=== PATIENT | female | born 1940 | race Caucasian/White ===

== ENCOUNTER → 2017-06-14 07:15 | Outpatient (CLI) | payer MEDICARE, SELFPAY ==
--- NOTE | 2017-06-14 07:20 | CT_ITS ---
STUDY: CT BRAIN WITH AND WITHOUT CONTRAST REASON FOR EXAM: Female, 77 years old. Hearing loss of the left ear with tinnitus. RADIATION DOSAGE (If Supplied By Facility): CTDIvol = ( 44.99 ) mGy, DLP = ( 1513.48 ) mGycm TECHNIQUE: Transaxial CT imaging of the brain was performed pre and post contrast administration. The examination was performed with intravenous administration of 50 ml of Isovue 370 contrast material. Individualized dose optimization techniques were used for this CT. COMPARISON: None. FINDINGS: Normal soft tissue structures. Normal calvarium. There is mild cerebral atrophy with widening of the extra-axial spaces and ventricular dilatation. Normal white matter tracts of the cerebral hemispheres. There are small punctate calcifications of the basal ganglia which are seen in the aging brain as a normal variant. Normal brainstem. Normal cerebellum. There is no intracranial hemorrhage. There are no findings of an acute ischemic infarction. Mucosal thickening of the maxillary sinuses bilaterally. CT/Brain/Head W/WO Contrast IMPRESSION: Chronic involutional changes of the brain. Electronically Signed: Ricki Crespo MD at 8:49 EDT Tel [phone], Service support ,
[2017-06-14 07:45] LABS: CREATININE FINGERSTICK 0.8 mg/dL (0.55-1.02); EGFR FINGERSTICK > 60.0000 mL/min (>60)
== END ==
PROVIDERS: Family Provider Internal Medicine; PCP Internal Medicine; Visit Provider Otolaryngology Otolaryngology/Facial Plastic Surgery
DX: Z01.812 Encounter for preprocedural laboratory examination (principal); H93.12 Tinnitus, left ear; H90.42 Sensorineural hearing loss, unilateral, left ear, with unrestricted hearing on the contralateral side
CPT/HCPCS: 70470; Q9967

== ENCOUNTER 2018-08-03 11:05 | Observation (INO) | payer MEDICARE, SELFPAY ==
[2018-08-03] VITALS (11 sets, daily range): BP systolic 99–175; BP diastolic 45–82; PULSE 65–78; RESP 16–22; TEMP 36.4–36.6; O2SAT 92–100; BMI 29.7; BMI 30.2; BMI 30.3
--- NOTE | 2018-08-03 11:28 | RAD_ITS ---
STUDY: X-RAY CHEST REASON FOR EXAM: Female, 78 years old. Chest pain and cough TECHNIQUE: PA and lateral views of the chest. COMPARISON: None. FINDINGS: EKG leads overlie the chest. Stable appearance of a left subclavian pacemaker The lungs are clear and expanded. There is no demonstrated pleural abnormality. Normal size heart. Normal mediastinum and astrid. Normal visualized pulmonary arteries. Normal visualized aortic arch and descending thoracic aorta. There are diffuse degenerative changes of the visualized thoracic spine. Normal visualized ribs, clavicles, and shoulders. There is no demonstrated abnormality of the visualized soft tissue structures of the upper abdomen. RAD/Chest PA and Lateral IMPRESSION: No acute pulmonary process Electronically Signed: Branden Moreau MD at 12:45 EDT , Service support ,
--- NOTE | 2018-08-03 11:28 | EKG12_ITS ---
Test Reason : Blood Pressure : / mmHG Vent. Rate : 071 BPM Atrial Rate : 071 BPM P-R Int : 000 ms QRS Dur : 240 ms QT Int : 754 ms P-R-T Axes : 059 269 063 degrees QTc Int : 819 ms Ventricular-paced rhythm Abnormal ECG Confirmed by CAM MONTERO, TODD ([id number]), field map editor CHRISSY SAN ([id number]) on 08/08/2018 8:21:38 AM Referred By: MARIA LUISA Confirmed By:TODD LEVY MD
--- NOTE | 2018-08-03 11:28 | CT_ITS ---
STUDY: CT BRAIN WITHOUT CONTRAST REASON FOR EXAM: Female, 78 years old. Dizziness RADIATION DOSAGE (If Supplied By Facility): CTDIvol = ( 44.99 ) mGy, DLP = ( 796.11 ) mGycm TECHNIQUE: Transaxial CT imaging of the brain was performed without administration of intravenous contrast material. Individualized dose optimization techniques were used for this CT. COMPARISON: 06/14/2017 FINDINGS: Normal soft tissue structures. Normal calvarium. Normal size ventricles and extra-axial spaces for the patient's age. Normal white matter tracts of the cerebral hemispheres. Normal basal ganglia and thalami. Normal brainstem. Normal cerebellum. There is no intracranial hemorrhage. There are no findings of an acute ischemic infarction. Normal visualized paranasal sinuses. CT/Brain/Head without Contrast IMPRESSION: Chronic involutional changes of the brain. No acute hemorrhage Electronically Signed: Branden Moreau MD at 12:41 EDT , Service support ,
--- NOTE | 2018-08-03 11:32 | ED.VISSUMM ---
- ER Visit Summary Date of Service: 08/03/18 Chief Complaint: Dizziness History of Present Illness: The patient is a 78 F who presents with dizziness for the past 2 weeks. Patient states he was seen in the emergency department at [place] 2 weeks ago. Patient states she was discharged at that time after a normal work-up. Patient followed up with her primary care physician who increased her Lasix. Patient has had a 9 pound weight loss since increasing her Lasix. Patient states the dizziness became worse again last night. Patient states her dizziness is worse when she moves her head. Patient describes her dizziness as a lightheadedness. Patient denies any spinning sensation. Patient denies any visual or hearing changes. Patient does admit to some tingling that is intermittent in both legs. Patient denies any headaches. Patient denies any weakness. Patient denies any fevers or chills. Physical Examination: Vital signs are stable. Patient is afebrile. Patient is in no acute distress. Oral mucosa is pink and moist. Neck is supple. Trachea is midline. There is no JVD noted. Heart was regular rate and rhythm. Lungs are clear and equal bilaterally. Abdomen is soft. Bowel sounds are normal. There is no tenderness. Cranial nerves II through XII are intact. There are no focal motor or sensory deficits noted. Pupils are equal, round, and reactive to light. Extraocular muscles are intact. There is no nystagmus noted. Test Results: EKG showed a paced rhythm with a rate of 71. There is a left bundle branch block pattern noted. The pacemaker and left bundle branch block are new compared to previous EKG dated 01/31/2014. CBC was normal. Basic metabolic profile showed a sodium of 124, potassium 1.8, chloride of 73, and slightly elevated BUN of 24. Troponin was 0.200. PA and lateral chest x-ray was obtained. There is no acute cardiopulmonary process. CT scan of the brain was obtained. There are chronic changes. There is no acute intracranial abnormality. Urinalysis was obtained and does not show any evidence of urinary tract infection. Emergency Department Course and Treatment: Patient was given oral potassium as well as IV potassium here in the emergency department. Patient was given aspirin. Case was discussed with the hospitalist. He will admit the patient for observation. Disposition: Admit to hospital Impression: 1. Hypokalemia 2. General weakness 3. Elevated troponin This note was generated with Bereket dictation software. It may contain incorrect words, spelling, and punctuation that were not noted in review of the chart prior to signing ED Disposition - Plan for ED Patient: Disposition: Acute Care Hospital [facility] Diagnosis: Hypokalemia, Elevated troponin, General weakness Referrals: Gretta Davila MD [Primary Care Provider] -
[2018-08-03 12:20] LABS: Absolute Lymphocyte Count 1.26 X10^3/ul (0.83-4.51); Absolute Neutrophil Count 5.2 X10^3/uL (2.0-7.7); Basophil# 0.03 X10^3/uL; Basophil% 0.4 % (0-1); Eosinophil# 0.12 X10^3/uL; Eosinophils% 1.6 % (0-5); Hematocrit 37.5 % (37-47); Lymphocyte # 1.26 X10^3/ul (4.0); Lymphocyte % 16.5 % (19-41); Mean Corp Hgb Conc 34.7 g/gl (32-36); Mean Corpuscular Hgb 30.2 pg (27.0-32.0); Mean Corpuscular Volume 87.2 fL (81-99); Mean Platelet Vol. 9.6 fl (6.2-12.0); Monocyte# 1.02 X10^3/uL; Monocyte% 13.4 % (0-10); Neutrophil # 5.18 X10^3/uL (2.7-7.7); Platelet Count 188 K/mm3 (150-450); RBC Distribution Width CV 13.3 % (11.6-14.6); RBC Distribution Width SD 41.5 fl (35.1-43.9); White Blood Count 7.6 K/mm3 (4.4-11.0)
[2018-08-03 12:27] LABS: POSITIVE COUNT NO; POSITIVE DIFFERENTIAL NO; POSITIVE MORPHOLOGY NO
[2018-08-03 13:07] LABS: Bacteria 0 SEEN /hpf (None Seen); Mucous, Urine 0 SEEN /hpf (<or=2+); Squamous Epithelial Cells - UA 0 SEEN /hpf (5-10); White Blood Cells 0 SEEN /hpf (0-5)
[2018-08-03 13:11] LABS: Color, Urine Yellow (Yellow); Glucose, Dipstick Normal (Normal); Ketone-Dipstick 15 mg/dl (Negative); Leukocyte Esterase-Dipstick Negative /ul (Negative); Nitrite-Dipstick Negative (Negative); Occult Blood-Urine 50 /ul (Negative); Protein-Dipstick Negative (Negative); Urine Bilirubin Dipstick Negative (Negative); Urine Clarity Clear (Clear); Urine Urobilinogen Normal (Normal); Urine pH 6.5 (5.0 - 8.0)
[2018-08-03 13:23] LABS: Red Blood Cells-Urine 0-5 SEEN /hpf (0-5)
[2018-08-03 14:15] LABS: Anion Gap 12 (5-15); BUN 24 mg/dL (7-18); BUN/Creat Ratio 29.4 RATIO (10-20); Calcium,Total 9.2 mg/dL (8.5-10.1); Chloride 73 mmol/L (98-107); Creatinine, Serum 0.82 mg/dL (0.55-1.02); EST Glomerular Filtration Rate 72 mL/min (>60); Est Glom Filt Rate - Afr Amer 87 mL/min (>60); Estimated Creatinine Clearance 50.88 ml/min; Glucose 126 mg/dL (74-106); Potassium 1.8 mmol/L (3.5-5.1); Sodium Level 124 mmol/L (136-145)
--- NOTE | 2018-08-03 14:30 | NURSING ---
DR COX FOR DR SMITH
--- NOTE | 2018-08-03 14:36 | NURSING ---
PCU [place] HYPOKALEMIA, ELEVATED TROP, GEN WEAKNESS
--- NOTE | 2018-08-03 14:52 | HP.PCM_ITS ---
Problem List (1) Aortic stenosis Status: Chronic (2) Mitral valve prolapse Status: Chronic (3) Cerebrovascular disease Status: Chronic (4) Hypertension Status: Chronic (5) Hyperlipidemia Status: Chronic (6) Dyslipidemia Status: Chronic (7) Type 2 diabetes mellitus Status: Chronic (8) Elevated troponin Status: Acute (9) General weakness Status: Acute History of Present Illness Date of Admission: 08/03/18 Chief Complaint: dizziness The patient is a 78 year old F with a PMH as below who presents with 2 weeks of dizziness. She states that she initially went to [facility] and her work- up there was normal. She followed up with her PCP who increased her Lasix but otherwise could not find anything else for her dizziness. She presents today because her PCP told her to come into the hospital because of her continued dizziness. In the ER she had a paced rhythm on EKG but she was positive for her orthostatics and her potassium was found to be 1.8. She did have a normal creatinine. Her troponin was also elevated to 0.2 however she has no corresponding chest pain. History is limited because she is a little bit slow in her responses likely secondary to her hypokalemia and there is no family in the room at the time of examination. Past Medical History Past Medical History (Chronic Problems): Chronic Problems Aortic stenosis (Chronic) Mitral valve prolapse (Chronic) Cerebrovascular disease (Chronic) Hypertension (Chronic) Hyperlipidemia (Chronic) Dyslipidemia (Chronic) Type 2 diabetes mellitus (Chronic) Allergies glyburide Allergy (Verified 08/03/18 11:09) Itching Sulfa (Sulfonamide Antibiotics) Allergy (Verified 08/03/18 11:09) Hives Home Medications: Ambulatory Orders Medication Instructions Recorded Aspirin [Aspirin, Baby] 81 mg PO DAILY@0800 01/31/14 Clopidogrel Bisulfate [Plavix] 75 mg PO DAILY 01/31/14 Flaxseed Oil/[place] 3,6,9 [Sv 1,000 mg PO DAILY 01/31/14 Flaxseed Oil 1,300 mg Sftgl] Furosemide [Lasix] 20 mg PO DAILY 01/31/14 Metoprolol Tartrate [Lopressor 12.5 mg PO DAILY 01/31/14 (beta santa)] Nitroglycerin (INPATIENT USE) 0.4 mg SUBLINGUAL Q5M PRN 04/28/15 [Nitrostat] Potassium Chloride [K-Dur] 10 meq PO DAILY 04/28/15 Ezetimibe 10 mg PO DAILY 08/03/18 Surgical History: pacemaker implantation, tonsillectomy, - - Carotid endarterectomy, valve replacement Smoking Status: Never smoker Alcohol: None Drugs: None - *Family History Maternal History Items: No pertinent history Paternal History Items: No pertinent history Review of Systems Constitutional: Denies: Chills, Fever, Weight Change HEENT: Denies: Head Aches, Sinus Congestion, Sinus Drainage Cardiovascular: Reports: Light Headedness. Denies: Chest Pain, Palpitations Respiratory: Denies: Cough, Shortness of breath at rest, Sputum production Gastrointestinal: Denies: Abdominal Pain, Nausea, Vomiting Genitourinary: Denies: Dysuria Musculoskeletal: Denies: Joint Pain, Joint Tenderness Skin: Denies: Rash, Wounds Neurological: Denies: Numbness, Tingling, Focal weakness Psychiatric: Denies: Anxiety, Depression Hematologic/ Lymphatic: Denies: Easy Bruising, Easy Bleeding VTE Information - Inpt Only VTE Present on Admission: No Patient Problems: Active and Suspected Problems Hypokalemia (Acute) Elevated troponin (Acute) General weakness (Acute) - Physical Exam General: Alert, Oriented x3, Cooperative, No apparent distress, - - Slow in speech and thought process HEENT: Atraumatic, PERRLA, EOMI, Normocephalic Oral: Dry Mucosa Neck: Supple, No JVD Lungs: Clear to auscultation, Normal air movement, No rhonchi, No wheeze, No rales Cardiovascular: Regular rate, Regular Rhythm, Normal S1, Normal S2, No murmurs Abdomen: Soft, Non Tender, Non-Distended, No Hepato-splenomegaly Extremities: No edema, Capillary Refill Less than 3 Seconds Skin: No rashes, No breakdown Neurological: Neuro grossly intact, Sensory exam intact to light touch and pain Psych/Mental Status: Normal Affect, Appropriate Vital Signs Temp Pulse Resp BP Pulse Ox 98 F 75 22 H 116/70 92 08/03/18 11:06 08/03/18 13:31 08/03/18 13:31 08/03/18 13:31 08/03/18 13:31 Oxygen Delivery Method Room Air Weight: 179 lb Body Mass Index (BMI) 29.7 Laboratory Tests Past 24 Hrs 08/03/18 08/03/18 08/03/18 12:05 12:05 13:00 WBC 7.6 RBC 4.30 Hgb 13.0 Hct 37.5 MCV 87.2 MCH 30.2 MCHC 34.7 RDW 13.3 RDW Differential 41.5 Plt Count 188 MPV 9.6 Immature Gran % (Auto) 0.100 Neut % (Auto) 68.0 Lymph % (Auto) 16.5 L [place] % (Auto) 13.4 H Eos % (Auto) 1.6 Baso % (Auto) 0.4 Absolute Neuts (auto) 5.2 Absolute Lymphs (auto) 1.26 Total Counted Not Reportable Sodium 124 L Potassium 1.8 L* Chloride 73 L* Carbon Dioxide 39.0 H Anion Gap 12 BUN 24 H Creatinine 0.82 Estim Creat Clear Calc 50.88 Est GFR (MDRD) Af Amer 87 Est GFR (MDRD) Non-Af 72 BUN/Creatinine Ratio 29.4 H Glucose 126 H Calcium 9.2 Troponin I 0.200 H Urine Color Yellow Urine Clarity Clear Urine pH 6.5 Ur Specific Reading 1.010 Urine Protein Negative Urine Glucose (UA) Normal Urine Ketones 15 H Urine Occult Blood 50 H Urine Nitrite Negative Urine Bilirubin Negative Urine Urobilinogen Normal Ur Leukocyte Esterase Negative Urine RBC 0-5 SEEN Urine WBC 0 SEEN Ur Squamous Epith Cells 0 SEEN Urine Bacteria 0 SEEN Urine Mucus 0 SEEN Assessment/Plan All Active Problems Hypokalemia (Acute) Elevated troponin (Acute) General weakness (Acute) 1. Dizziness/elevated troponin/severe hypokalemia -Potassium was replaced with 60 mEq in the ER -BMP in the morning with mag and a false level -Serial troponins for further evaluation -She was orthostatic in the ER, vital signs went from 175 systolic down to 141 2. History of an aortic valve replacement/history of carotid endarter ectomy/possible heart failure/HTN/HLD -We will continue with her aspirin and Plavix -We will obtain an echo in the morning for evaluation of her elevated troponin -She is not sure that she even has heart failure and if she does she is not sure what kind it is -Hold her metoprolol and her Lasix for now -Continue with Zetia DVT: Lovenox Code Visit OBSV E&M: [id number] Initial observation care L3
--- NOTE | 2018-08-03 15:04 | CASEMGMT ---
RN CM Assessment Introduced role of RN CM to patient.? Patient is alert, oriented and able?to participate in RN CM Assessment. ?Care providers, pharmacy, and demographics verified. Presentation: Dizziness x2 weeks. Seen at ER in [place] [id number] ago, F/u with PCP-increased Lasix and has had a 9lb weigh loss since. Admit Dx: Hypokalemia, Increased Troponin Re-Admit: No Barriers/Issues: None. Patient states was only directed to take Potassium sometimes, states the last time her potassium was check she was told that it was getting a little low. This CM advised her s/w the physician regarding if there is a need for Daily Potassium and this typewriter mechanic educated/discussed on eating foods high in Potassium-and what some foods that are high in Potassium. PCP: Gretta Davila Specialists: Cardio- [facility] in [place]. Preferred Pharmacy: [facility] Insurance: [facility] Rx Benefit:?Yes, [employer] LNOK: Dtr Joleen Shen, Dtr Gia Caal, Dtr Dior Toth LW/HPOA: Yes both, States completed a long time ago and thinks HPOA- Dtr Gia Caal. Aware not on file at [facility]. Living Arrangements:?Lives Alone in a 3rd Fl apartment with Elevator Access. No steps to enter her Apartment. ADL?s: Independent with ambulation and ADL's Transportation: Patient drives, Dtr Dior Toth upon DC DME: [employer] HHC: None SNF: None Goal: Home, does not think will have any needs. Denies questions or concerns at this time. Aware CM remains available for any emerging needs that may arise. DC PLAN: Home with no anticipated needs identified at this time. ELENI Santiago
[2018-08-03] MEDS: Potassium Chloride 10mEq/100mL 10 MEQ/100 ML IV.SOLN. 100 MEQ IV BOLUS ×2 (15:14→16:12)
[2018-08-03] MEDS: Aspirin 81 MG TAB.CHEW 324 MG PO (15:14)
--- NOTE | 2018-08-03 15:14 | NURSING ---
117 HYPOKALEMIA AND ELEVATED TROP [place]
--- NOTE | 2018-08-03 15:15 | ED.RN ---
pt unable to swallow potassium. dr aware. pt attempted with water, yogurt and unsuccessful. pt requesting banana that is how she takes bigger pills at home. ordered from dietary
--- NOTE | 2018-08-03 15:50 | ED.RN ---
pt banana did not come up from dietary at this time. she is ready for transfer to unit. called [facility] aware pt has not had and they will give on unit.
--- NOTE | 2018-08-03 16:29 | EKG12_ITS ---
Test Reason : CP ADMISSION Blood Pressure : / mmHG Vent. Rate : 067 BPM Atrial Rate : 067 BPM P-R Int : 344 ms QRS Dur : 226 ms QT Int : 734 ms P-R-T Axes : 078 270 067 degrees QTc Int : 775 ms Atrial-sensed ventricular-paced rhythm with prolonged AV conduction Abnormal ECG When compared with ECG of 03-AUG-2018 11:41, MANUAL COMPARISON REQUIRED, DATA IS UNCONFIRMED Confirmed by CAM MONTERO, TODD ([id number]), supervising editor trailer ADOLFO OLVERA ([id number]) on 08/04/2018 8:10:18 AM Referred By: TRES Confirmed By:TODD LEVY MD
[2018-08-03] MEDS: 0.9% Normal Saline 1,000 ML 100 ML IV (17:58)
[2018-08-03 19:47] LABS: Magnesium 1.9 mg/dL (1.6-2.6)
[2018-08-03 23:04] LABS: Anion Gap 8 (5-15); BUN 20 mg/dL (7-18); BUN/Creat Ratio 21.6 RATIO (10-20); Calcium,Total 8.6 mg/dL (8.5-10.1); Chloride 82 mmol/L (98-107); Creatinine, Serum 0.92 mg/dL (0.55-1.02); EST Glomerular Filtration Rate 62 mL/min (>60); Est Glom Filt Rate - Afr Amer 75 mL/min (>60); Estimated Creatinine Clearance 45.35 ml/min; Glucose 136 mg/dL (74-106); Potassium 2.3 mmol/L (3.5-5.1); Sodium Level 130 mmol/L (136-145)
[2018-08-04] VITALS (11 sets, daily range): BP systolic 113–147; BP diastolic 51–70; PULSE 63–84; RESP 12–16; TEMP 36.5–36.7; O2SAT 94–98
--- NOTE | 2018-08-04 05:55 | ECHOD_ITS ---
Reason For Study: SYNCOPE/NEAR SYNCOPE Procedure This was a 2D Doppler, Color Flow transthoracic echocardiogram. The study was technically difficult. Definity deferred due to increased PAP. Exam performed portable in patient room. Left Ventricle Normal LV size. Moderate concentric left ventricular hypertrophy. Left ventricular systolic function is normal. The estimated ejection fraction is 65 %. Stage 2 diastolic dysfunction. No regional wall motion abnormalities noted. Right Ventricle Normal RV size. ICD or pacer leads identified within the right ventricle. Normal systolic function. Atria Normal left atrium. Normal right atrium. Mitral Valve There is moderate mitral annular calcification. Moderate (2+) eccentric mitral valve insufficiency. Tricuspid Valve Normal tricuspid valve. Moderate (2+) tricuspid valve insufficiency. Pulmonary artery systolic pressure is 56 mmHg. Aortic Valve Mild aortic stenosis. Mean aortic valve gradient 11 mmHg. Mild (1+) aortic valve insufficiency. Bioprosthetic aortic valve. Great Vessels Normal aortic root. The pulmonary artery is normal size. Normal inferior vena cava. Pericardium/Pleural No pericardial effusion. MMode/2D Measurements & Calculations LVIDd: 3.7 cm IVSd: 1.3 cm LVOT diam: 1.9 cm LVIDs: 1.8 cm LVPWd: 1.2 cm LVOT area: 2.9 cm2 RVDd: 3.2 cm FS: 51.1 % Ao root diam: 2.9 cm LAV(MOD-bp): 53.2 ml LVAd ap4: 21.2 cm2 LAV(MOD-bp) Indexed: 28.0 ml/m2 EDV(MOD-sp4): 59.1 ml LAV(MOD-sp2): 55.2 ml EDV(sp4-el): 61.4 ml LAV(MOD-sp4): 51.7 ml LVAs ap4: 8.7 cm2 ESV(MOD-sp4): 14.2 ml ESV(sp4-el): 13.1 ml EF(MOD-sp4): 76.0 % EF(sp4-el): 78.7 % SV(MOD-sp4): 44.9 ml SV(sp4-el): 48.3 ml LA A4 area: 18.8 cm2 LA dimension(2D): 4.8 cm RA A4 area: 18.6 cm2 Time Measurements MV dec time: 0.35 sec Doppler Measurements & Calculations MV E max chris: 150.0 cm/sec Lat Peak E' Chris: 8.4 cm/sec Med Peak E' Chris: 4.5 cm/sec MV A max chris: 125.2 cm/sec E/E' lat: 17.8 E/E' med: 33.5 MV E/A: 1.2 MV V2 max: 215.6 cm/sec MV P1/2t max chris: 211.9 cm/sec Ao V2 max: 215.7 cm/sec MV max P.6 mmHg MV P1/2t: 104.7 msec Ao max P.7 mmHg MV V2 mean: 136.1 cm/sec Ao V2 mean: 158.8 cm/sec MV mean P.3 mmHg MV dec slope: 592.8 cm/sec2 Ao mean P.2 mmHg MV V2 VTI: 69.3 cm MVA(P1/2t): 2.1 cm2 Ao V2 VTI: 45.0 cm MVA(VTI): 1.1 cm2 NIK(I,D): 1.7 cm2 NIK(V,D): 1.6 cm2 AI max chris: 326.4 cm/sec LV V1 max: 119.2 cm/sec SV(LVOT): 75.5 ml AI max P.7 mmHg LV V1 max P.7 mmHg AI dec slope: 218.0 cm/sec2 LV V1 mean P.2 mmHg AI P1/2t: 438.5 msec LV V1 mean: 83.0 cm/sec LV V1 VTI: 26.1 cm PA V2 max: 98.6 cm/sec TR max chris: 360.4 cm/sec MV P1/2t-pr_phl: 105.0 msec TR max P.0 mmHg Interpretation Summary Normal LV size. Moderate concentric left ventricular hypertrophy. Left ventricular systolic function is normal. The estimated ejection fraction is 65 %. Stage 2 diastolic dysfunction. Moderate (2+) eccentric mitral valve insufficiency. Bioprosthetic aortic valve. Mean aortic valve gradient 11 mmHg. Ordering Physician: Ernst Maza Referring Physician: MULU STOKES Performed By: Laura Roy RDCS
[2018-08-04 06:00] LABS: Anion Gap 10 (5-15); BUN 16 mg/dL (7-18); BUN/Creat Ratio 20.4 RATIO (10-20); Calcium,Total 8.3 mg/dL (8.5-10.1); Chloride 89 mmol/L (98-107); Creatinine, Serum 0.78 mg/dL (0.55-1.02); EST Glomerular Filtration Rate 76 mL/min (>60); Est Glom Filt Rate - Afr Amer 91 mL/min (>60); Estimated Creatinine Clearance 41.72 ml/min; Glucose 122 mg/dL (74-106); Magnesium 2.2 mg/dL (1.6-2.6); Phosphorus 1.7 mg/dL (2.5-4.9); Potassium 2.7 mmol/L (3.5-5.1); Sodium Level 136 mmol/L (136-145)
[2018-08-04] MEDS: Aspirin 81 MG TAB.CHEW PO (07:30)
[2018-08-04] MEDS: Ezetimibe 10 MG Tablet PO (09:53)
[2018-08-04] MEDS: Clopidogrel Bisulfate 75 MG Tablet PO (09:53)
[2018-08-04] MEDS: Enoxaparin 40 MG/0.4 ML Syringe SC (09:54)
--- NOTE | 2018-08-04 13:00 | PN_ITS ---
<Anne Rm - Last Filed: 08/04/18 12:55> Patient Problems: Active and Suspected Problems Hypokalemia (Acute) Elevated troponin (Acute) General weakness (Acute) Subjective: Patient seen and examined. Reports improvement in dizziness. Denies chest pain, shortness of breath. - Physical Exam General: Alert, Oriented x3, Cooperative HEENT: Atraumatic, PERRLA, EOMI, Normocephalic Neck: Supple, No JVD, Negative Carotid Bruits Lungs: Clear to auscultation, Normal air movement Cardiovascular: Regular rate, Regular Rhythm, Normal S1, Normal S2 Abdomen: Bowel Sounds Present, Soft, Non Tender, Non-Distended Extremities: No clubbing, No cyanosis, No edema, Capillary Refill Less than 3 Seconds Skin: No rashes, No breakdown Musculoskeletal: No Tenderness to Palpation of Joints or Extremities Neurological: Cranial nerves II-XII grossly intact, Neuro grossly intact Psych/Mental Status: Normal Affect, Appropriate Vital Signs Temp Pulse Resp BP Pulse Ox 97.8 F 65 14 119/62 94 08/04/18 07:37 08/04/18 07:37 08/04/18 07:37 08/04/18 07:37 08/04/18 07:37 Oxygen Delivery Method Room Air Weight: 181 lb 14.102 oz Body Mass Index (BMI) 30.2 Orthostatic Vital Signs Start: 08/04/18 03:11 Freq: q24h Status: Active Protocol: Activity Type Activity Date Activity User E-Sign Co-Sign Detail Recorded Client Recorded Date Recorded By Document 08/04/18 03:11 [facility] [id number] 08/04/18 03:12 [facility] 08/04/18 03:11 Orthostatic Vitals Standing -Blood Pressure (90/60-120/80) 114/51 L -Extremity Use Left Arm -Pulse Rate (60-100) 72 Sitting -Blood Pressure (90/60-120/80) 130/57 H -Extremity Use Left Arm -Pulse Rate (60-100) 74 Lying -Blood Pressure (90/60-120/80) 134/55 H -Extremity Use Left Arm -Pulse Rate (60-100) 73 Intake and Output for Last 24 Hours 08/02/18 08/03/18 08/04/18 23:59 23:59 23:59 Intake Total 735 / 735 2609 / 2609 Balance 735 / 735 2609 / 2609 Laboratory Tests Past 24 Hrs 08/03/18 08/03/18 08/03/18 12:05 13:00 16:22 Sodium 124 L Potassium 1.8 L* Chloride 73 L* Carbon Dioxide 39.0 H Anion Gap 12 BUN 24 H Creatinine 0.82 Estim Creat Clear Calc 50.88 Est GFR (MDRD) Af Amer 87 Est GFR (MDRD) Non-Af 72 BUN/Creatinine Ratio 29.4 H Glucose 126 H Calcium 9.2 Phosphorus Magnesium Troponin I 0.200 H 0.213 H Urine Color Yellow Urine Clarity Clear Urine pH 6.5 Ur Specific [place] 1.010 Urine Protein Negative Urine Glucose (UA) Normal Urine Ketones 15 H Urine Occult Blood 50 H Urine Nitrite Negative Urine Bilirubin Negative Urine Urobilinogen Normal Ur Leukocyte Esterase Negative Urine RBC 0-5 SEEN Urine WBC 0 SEEN Ur Squamous Epith Cells 0 SEEN Urine Bacteria 0 SEEN Urine Mucus 0 SEEN 08/03/18 08/03/18 08/03/18 16:22 19:06 22:10 Sodium 130 L Potassium 2.3 L* Chloride 82 L Carbon Dioxide 40.0 H Anion Gap 8 BUN 20 H Creatinine 0.92 Estim Creat Clear Calc 45.35 Est GFR (MDRD) Af Amer 75 Est GFR (MDRD) Non-Af 62 BUN/Creatinine Ratio 21.6 H Glucose 136 H Calcium 8.6 Phosphorus Magnesium 1.9 Troponin I 0.209 H Urine Color Urine Clarity Urine pH Ur Specific [place] Urine Protein Urine Glucose (UA) Urine Ketones Urine Occult Blood Urine Nitrite Urine Bilirubin Urine Urobilinogen Ur Leukocyte Esterase Urine RBC Urine WBC Ur Squamous Epith Cells Urine Bacteria Urine Mucus 08/04/18 05:05 Sodium 136 Potassium 2.7 L* Chloride 89 L Carbon Dioxide 37.0 H Anion Gap 10 BUN 16 Creatinine 0.78 Estim Creat Clear Calc 41.72 Est GFR (MDRD) Af Amer 91 Est GFR (MDRD) Non-Af 76 BUN/Creatinine Ratio 20.4 H Glucose 122 H Calcium 8.3 L Phosphorus 1.7 L Magnesium 2.2 Troponin I Urine Color Urine Clarity Urine pH Ur Specific [place] Urine Protein Urine Glucose (UA) Urine Ketones Urine Occult Blood Urine Nitrite Urine Bilirubin Urine Urobilinogen Ur Leukocyte Esterase Urine RBC Urine WBC Ur Squamous Epith Cells Urine Bacteria Urine Mucus Medical Necessity - Tobacco Use Smoking Status: Never smoker Assessment/Plan All Active Problems Hypokalemia (Acute) Elevated troponin (Acute) General weakness (Acute) 1. Severe hypokalemia-suspect secondary to recent increase in diuretic regimen. She reports Bumex was added to Lasix. Replace potassium per protocol. Repeat BMP in a.m. 2. Elevated troponin-troponin did not trend. EKG without ST-T changes. Patient denies chest pain, chest pressure or shortness of breath. Echocardiogram ordered and pending. Obtain records from patient's primary demand generation manager. 3. Dizziness, suspected secondary to orthostatic hypotension as a result of diuretic regimen-diuretic regimen on hold. Gentle IV fluids. Repeat orthostatic vitals in a.m. 4. Hypertension-stable, continue home metoprolol regimen. 5. Hyperlipidemia-continue Zetia regimen. 6. History of aortic valve replacement 7. History of carotid endarterectomy-continue aspirin, Plavix, Zetia regimen. DVT prophylaxis- Lovenox sc This patient was seen by TESSA Wilson under the supervision of Dr. Sheridan. <Sandy Sheridan - Last Filed: 08/04/18 14:03> - Physical Exam Vital Signs Temp Pulse Resp BP Pulse Ox 97.8 F 68 12 132/51 H 98 08/04/18 13:44 08/04/18 13:44 08/04/18 13:44 08/04/18 13:44 08/04/18 13:44 Oxygen Delivery Method Room Air Weight: 181 lb 14.102 oz Body Mass Index (BMI) 30.2 Orthostatic Vital Signs Start: 08/04/18 03:11 Freq: q24h Status: Active Protocol: Activity Type Activity Date Activity User E-Sign Co-Sign Detail Recorded Client Recorded Date Recorded By Document 08/04/18 03:11 [facility] [id number] 08/04/18 03:12 [facility] 08/04/18 03:11 Orthostatic Vitals Standing -Blood Pressure (90/60-120/80) 114/51 L -Extremity Use Left Arm -Pulse Rate (60-100) 72 Sitting -Blood Pressure (90/60-120/80) 130/57 H -Extremity Use Left Arm -Pulse Rate (60-100) 74 Lying -Blood Pressure (90/60-120/80) 134/55 H -Extremity Use Left Arm -Pulse Rate (60-100) 73 Intake and Output for Last 24 Hours 08/02/18 08/03/18 08/04/18 23:59 23:59 23:59 Intake Total 735 / 735 2609 / 2609 Balance 735 / 735 2609 / 2609 Laboratory Tests Past 24 Hrs 08/03/18 08/03/18 08/03/18 12:05 16:22 16:22 Sodium 124 L Potassium 1.8 L* Chloride 73 L* Carbon Dioxide 39.0 H Anion Gap 12 BUN 24 H Creatinine 0.82 Estim Creat Clear Calc 50.88 Est GFR (MDRD) Af Amer 87 Est GFR (MDRD) Non-Af 72 BUN/Creatinine Ratio 29.4 H Glucose 126 H Calcium 9.2 Phosphorus Magnesium 1.9 Troponin I 0.200 H 0.213 H 08/03/18 08/03/18 08/04/18 19:06 22:10 05:05 Sodium 130 L 136 Potassium 2.3 L* 2.7 L* Chloride 82 L 89 L Carbon Dioxide 40.0 H 37.0 H Anion Gap 8 10 BUN 20 H 16 Creatinine 0.92 0.78 Estim Creat Clear Calc 45.35 41.72 Est GFR (MDRD) Af Amer 75 91 Est GFR (MDRD) Non-Af 62 76 BUN/Creatinine Ratio 21.6 H 20.4 H Glucose 136 H 122 H Calcium 8.6 8.3 L Phosphorus 1.7 L Magnesium 2.2 Troponin I 0.209 H Assessment/Plan Patient seen by Anne Rm NP-Kati under my supervision Patient was admitted with complaint of dizziness and weakness. She was found to have positive orthostatics. She was also noted to be profoundly hypokalemic and this was thought to be due to elevation of her diuretics recently with metolazone been added onto her Lasix. Symptoms started just around the time that these changes were made. Potassium has been replaced. Patient feels much better today with IV fluid hydration and being administered potassium. She denies any lightheadedness or dizziness, palpitations, chest pain, diarrhea vomiting. Review of systems otherwise negative. Labs and vitals reviewed. o/e: Vital Signs Height 5 ft 5 in Weight: 181 lb 14.102 oz Weight in Pounds 181.9 lbs Pulse Ox 98 Temperature 97.8 F Pulse Rate [Standing] 72 Pulse Rate [Sitting] 74 Pulse Rate [Lying] 73 Pulse Rate 68 Respiratory Rate 12 Blood Pressure [Standing] 114/51 Blood Pressure [Sitting] 130/57 Blood Pressure [Lying] 134/55 Blood Pressure [2nd BP] 106/58 Blood Pressure 132/51 Blood Pressure Position [2nd Semi-Fowlers BP] Blood Pressure Position Sitting General: Alert, Oriented x3, Cooperative HEENT: Atraumatic, PERRLA, EOMI, Normocephalic Neck: Supple, No JVD, Negative Carotid Bruits Lungs: Clear to auscultation, Normal air movement Cardiovascular: Regular rate, Regular Rhythm, Normal S1, Normal S2 Abdomen: Bowel Sounds Present, Soft, Non Tender, Non-Distended Extremities: No clubbing, No cyanosis, No edema, Capillary Refill Less than 3 Seconds Skin: No rashes, No breakdown Musculoskeletal: No Tenderness to Palpation of Joints or Extremities Neurological: Cranial nerves II-XII grossly intact, Neuro grossly intact Psych/Mental Status: Normal Affect, Appropriate Potassium was 2.7 today. Hyponatremia has resolved. Plan is to aggressively replace potassium today. Phosphorus was also low and will replace. Magnesium within normal limits. Of note, troponin was mildly elevated around 0.2 and only peaked at 0.213. This is likely due to demand ischemia from hypotension and dehydration. 2D echo ordered. Will follow. Rest of management as per TESSA Wilson's note which I reviewed and endorsed. Code Visit OBSV E&M: 52430 Subsequent observation care L3
[2018-08-04] MEDS: Na Biphos/Potassium Phosphate PACKET 1 PACKET PO (23:06)
[2018-08-05] VITALS (9 sets, daily range): BP systolic 122–137; BP diastolic 51–64; PULSE 62–76; RESP 15–18; TEMP 36.5; O2SAT 96–98
[2018-08-05] MEDS: Na Biphos/Potassium Phosphate PACKET 1 PACKET PO (05:44)
[2018-08-05 08:00] LABS: Anion Gap 7 (5-15); BUN 16 mg/dL (7-18); BUN/Creat Ratio 20.4 RATIO (10-20); Calcium,Total 8.8 mg/dL (8.5-10.1); Chloride 96 mmol/L (98-107); Creatinine, Serum 0.78 mg/dL (0.55-1.02); EST Glomerular Filtration Rate 75 mL/min (>60); Est Glom Filt Rate - Afr Amer 91 mL/min (>60); Estimated Creatinine Clearance 41.72 ml/min; Glucose 116 mg/dL (74-106); Potassium 3.4 mmol/L (3.5-5.1); Sodium Level 139 mmol/L (136-145)
[2018-08-05] MEDS: Metoprolol Tartrate 25 MG Tablet 12.5 MG PO (09:02)
[2018-08-05] MEDS: Aspirin 81 MG TAB.CHEW PO (09:02)
[2018-08-05] MEDS: Enoxaparin 40 MG/0.4 ML Syringe SC (09:03)
[2018-08-05] MEDS: Ezetimibe 10 MG Tablet PO (09:04)
[2018-08-05] MEDS: Clopidogrel Bisulfate 75 MG Tablet PO (09:04)
--- NOTE | 2018-08-05 10:08 | PCM.DC ---
- Discharge Diagnoses Current Active Problems: Current Active and Chronic Problems Hypokalemia (Acute) Elevated troponin (Acute) General weakness (Acute) You will use the following diet at home:: Cardiac Discharge Activity: Return to Normal Activity, Use Walker Call your doctor if you observe: Shortness of breath, Dizziness, Fainting spells, Chest pain Additional Instructions: Discontinue bumex regimen. Allergies/Adverse Reactions: Allergies glyburide Allergy (Verified 08/03/18 11:09) Itching Sulfa (Sulfonamide Antibiotics) Allergy (Verified 08/03/18 11:09) Hives Medications to take at Discharge Aspirin [Aspirin, Baby] 81 mg PO DAILY@0800 01/31/14 Clopidogrel Bisulfate [Plavix] 75 mg PO DAILY 01/31/14 Flaxseed Oil/[place] 3,6,9 [Sv Flaxseed Oil 1,300 mg Sftgl] 1,000 mg PO DAILY 01/31/14 Furosemide [Lasix] 20 mg PO BID 01/31/14 Metoprolol Tartrate [Lopressor (beta santa)] 12.5 mg PO DAILY 01/31/14 Nitroglycerin (INPATIENT USE) [Nitrostat] 0.4 mg SUBLINGUAL Q5M PRN 04/28/15 Ezetimibe 10 mg PO DAILY 08/03/18 Na Biphos/Potassium Phosphate [Neutra-Phos Packet] 1 packet PO TID #42 packet 08/05/18 Potassium Chloride [K-Dur] 40 meq PO DAILY #60 tablet 08/05/18 The following prescriptions were given: Potassium Chloride [K-Dur] 40 meq PO DAILY #60 tablet Na Biphos/Potassium Phosphate [Neutra-Phos Packet] 1 packet PO TID #42 packet Primary Care Physician: Gretta Davila MD [Primary Care Provider] - Please follow up with your Primary Care Physician in: 1 Week Test Results: Test results from this visit will be discussed in further detail at your follow-up appointment, if applicable. Please Follow Up With: Primary Service Line Bus Cleaner When: 1-2 Weeks Proposed Discharge Date: 08/05/18
--- NOTE | 2018-08-05 10:12 | DCINST_ITS ---
- Discharge Diagnoses Current Active Problems: Current Active and Chronic Problems Hypokalemia (Acute) Elevated troponin (Acute) General weakness (Acute) You will use the following diet at home:: Cardiac Discharge Activity: Return to Normal Activity, Use Walker Call your doctor if you observe: Shortness of breath, Dizziness, Fainting spells, Chest pain Additional Instructions: Discontinue bumex regimen. Allergies/Adverse Reactions: Allergies glyburide Allergy (Verified 08/03/18 11:09) Itching Sulfa (Sulfonamide Antibiotics) Allergy (Verified 08/03/18 11:09) Hives Medications to take at Discharge Aspirin [Aspirin, Baby] 81 mg PO DAILY@0800 01/31/14 Clopidogrel Bisulfate [Plavix] 75 mg PO DAILY 01/31/14 Flaxseed Oil/[place] 3,6,9 [Sv Flaxseed Oil 1,300 mg Sftgl] 1,000 mg PO DAILY 01/31/14 Furosemide [Lasix] 20 mg PO BID 01/31/14 Metoprolol Tartrate [Lopressor (beta santa)] 12.5 mg PO DAILY 01/31/14 Nitroglycerin (INPATIENT USE) [Nitrostat] 0.4 mg SUBLINGUAL Q5M PRN 04/28/15 Ezetimibe 10 mg PO DAILY 08/03/18 Na Biphos/Potassium Phosphate [Neutra-Phos Packet] 1 packet PO TID #42 packet 08/05/18 Potassium Chloride [K-Dur] 40 meq PO DAILY #60 tablet 08/05/18 The following prescriptions were given: Potassium Chloride [K-Dur] 40 meq PO DAILY #60 tablet Na Biphos/Potassium Phosphate [Neutra-Phos Packet] 1 packet PO TID #42 packet Primary Care Physician: Gretta Davila MD [Primary Care Provider] - Please follow up with your Primary Care Physician in: 1 Week Test Results: Test results from this visit will be discussed in further detail at your follow- up appointment, if applicable. Please Follow Up With: Primary Electrician Maintenance When: 1-2 Weeks Proposed Discharge Date: 08/05/18
--- NOTE | 2018-08-05 10:12 | PCM.DC.SUM ---
<Anne Rm - Last Filed: 08/05/18 11:03> Discharge Date and Diagnosis Date of Admission: 08/03/18 Date of Discharge: 08/05/18 - Primary Discharge Diagnosis Active and Suspected Problems 1. Severe hypokalemia, mild hypophosphatemia 2. Elevated troponin, ACS ruled out 3. Dizziness, suspected secondary to orthostatic hypotension as a result of diuretic regimen 4. Hypertension 5. Hyperlipidemia 6. History of aortic valve replacement 7. History of carotid endarterectomy - Secondary Discharge Diagnosis Chronic Problems Aortic stenosis (Chronic) Mitral valve prolapse (Chronic) Cerebrovascular disease (Chronic) Hypertension (Chronic) Hyperlipidemia (Chronic) Dyslipidemia (Chronic) Type 2 diabetes mellitus (Chronic) Hospital Course and Treatment Imaging Results: Diagnostic Data Brain CT 08/03/18 11:28 IMPRESSION: Chronic involutional changes of the brain. No acute hemorrhage Electronically Signed: Branden Moreau MD at 12:41 EDT , Service support , Chest X-Ray 08/03/18 11:28 IMPRESSION: No acute pulmonary process Electronically Signed: Branden Moreau MD at 12:45 EDT , Service support , Operations: None Procedures: 2-D Echocardiogram Summary of Care Provided: The patient is a 78 year old F admitted 08/03/2018 due to dizziness. 1. Severe hypokalemia, mild hypophosphatemia- secondary to recent increase in diuretic regimen. She reports Bumex was added to Lasix. Potassium and phosphorus replaced per protocol. Recommend to repeat BMP, phosphorus within 1 week by primary care provider. Potassium supplementation increased at discharge. Discontinue Bumex going forward. Follow-up with primary care provider in 1 week. 2. Elevated troponin-troponin did not trend. EKG without ST-T changes. Patient denies chest pain, chest pressure or shortness of breath. Echocardiogram shows an EF of 65%, stage II diastolic dysfunction, moderate mitral valve insufficiency, bioprosthetic aortic valve. No noted wall motion abnormality. Follow-up with primary epic ambulatory analyst in 1 to 2 weeks. 3. Dizziness, suspected secondary to orthostatic hypotension as a result of diuretic regimen-diuretic regimen held during admission. Repeat orthostatic vitals negative. Dizziness resolved. 4. Hypertension-stable, continue home metoprolol regimen. 5. Hyperlipidemia-continue Zetia regimen. 6. History of aortic valve replacement 7. History of carotid endarterectomy-continue aspirin, Plavix, Zetia regimen. General: Alert, Oriented x3, Cooperative HEENT: Atraumatic, PERRLA, EOMI, Normocephalic Neck: Supple, No JVD, Negative Carotid Bruits Lungs: Clear to auscultation, Normal air movement Cardiovascular: Regular rate, Regular Rhythm, Normal S1, Normal S2 Abdomen: Bowel Sounds Present, Soft, Non Tender, Non-Distended Extremities: No clubbing, No cyanosis, No edema, Capillary Refill Less than 3 Seconds Skin: No rashes, No breakdown Musculoskeletal: No Tenderness to Palpation of Joints or Extremities Neurological: Cranial nerves II-XII grossly intact, Neuro grossly intact Psych/Mental Status: Normal Affect, Appropriate Patient seen and examined prior to discharge. Physical assessment as noted above. Patient is stable for discharge with follow up recommendations as noted above. This patient was seen by TESSA Wilson under the supervision of Dr. Sheridan. - Physical Exam Vital Signs Temp Pulse Resp BP Pulse Ox 97.7 F L 67 18 122/57 H 98 08/05/18 09:39 08/05/18 09:39 08/05/18 09:39 08/05/18 09:39 08/05/18 09:39 Oxygen Delivery Method Room Air Weight: 181 lb 14.102 oz Body Mass Index (BMI) 30.2 Orthostatic Vital Signs Start: 08/04/18 03:11 Freq: q24h Status: Active Protocol: Activity Type Activity Date Activity User E-Sign Co-Sign Detail Recorded Client Recorded Date Recorded By Document 08/05/18 05:37 [facility] [id number] 08/05/18 05:42 [facility] 08/05/18 05:37 Orthostatic Vitals Standing -Blood Pressure (90/60-120/80) 134/54 H -Extremity Use Left Arm -Pulse Rate (60-100) 76 Sitting -Blood Pressure (90/60-120/80) 137/64 H -Extremity Use Left Arm -Pulse Rate (60-100) 71 Lying -Blood Pressure (90/60-120/80) 136/55 H -Extremity Use Left Arm -Pulse Rate (60-100) 67 Intake and Output for Last 24 Hours 08/03/18 08/04/18 08/05/18 23:59 23:59 23:59 Intake Total 735 / 735 3089 / 3089 336 / 336 Balance 735 / 735 3089 / 3089 336 / 336 Laboratory Tests Past 24 Hrs 08/05/18 08/05/18 06:18 06:18 Sodium 139 Potassium 3.4 L Chloride 96 L Carbon Dioxide 36.0 H Anion Gap 7 BUN 16 Creatinine 0.78 Estim Creat Clear Calc 41.72 Est GFR (MDRD) Af Amer 91 Est GFR (MDRD) Non-Af 75 BUN/Creatinine Ratio 20.4 H Glucose 116 H Calcium 8.8 Phosphorus Pending Discharge Diet: Low fat/ Low Cholesterol Discharge Activity: Return to Normal Activity, Use Walker Call your doctor if you observe: Shortness of breath, Dizziness, Fainting spells, Chest pain Home Medications: Medications to take at Discharge Aspirin [Aspirin, Baby] 81 mg PO DAILY@0800 01/31/14 Clopidogrel Bisulfate [Plavix] 75 mg PO DAILY 01/31/14 Flaxseed Oil/[place] 3,6,9 [Sv Flaxseed Oil 1,300 mg Sftgl] 1,000 mg PO DAILY 01/31/14 Furosemide [Lasix] 20 mg PO BID 01/31/14 Metoprolol Tartrate [Lopressor (beta santa)] 12.5 mg PO DAILY 01/31/14 Nitroglycerin (INPATIENT USE) [Nitrostat] 0.4 mg SUBLINGUAL Q5M PRN 04/28/15 Ezetimibe 10 mg PO DAILY 08/03/18 Na Biphos/Potassium Phosphate [Neutra-Phos Packet] 1 packet PO TID #42 packet 08/05/18 Potassium Chloride [K-Dur] 40 meq PO DAILY #60 tablet 08/05/18 Following Prescrptions Were Given to Patient: Potassium Chloride [K-Dur] 40 meq PO DAILY #60 tablet Na Biphos/Potassium Phosphate [Neutra-Phos Packet] 1 packet PO TID #42 packet Primary Care Physician: Gretta Davila MD [Primary Care Provider] - Please follow up with your Primary Care Physician in: 1 Week Please Follow Up With: Primary Manager Intensive Care When: 1-2 Weeks Disposition: Home Minutes spent on discharge:: 35 Patient Condition:: Stable Medical Necessity - Tobacco Use Smoking Status: Never smoker Meaningful Use Info Meaningful Use Diagnoses (Choose all that apply): None applicable <Sandy Sheridan - Last Filed: 08/05/18 12:47> Discharge Date and Diagnosis - Secondary Discharge Diagnosis Chronic Problems Aortic stenosis (Chronic) Mitral valve prolapse (Chronic) Cerebrovascular disease (Chronic) Hypertension (Chronic) Hyperlipidemia (Chronic) Dyslipidemia (Chronic) Type 2 diabetes mellitus (Chronic) Hospital Course and Treatment Summary of Care Provided: Patient seen by Anne ZARATE under my supervision Patient was admitted with complaint of dizziness and weakness. She was found to have positive orthostatics. She was also noted to be profoundly hypokalemic and this was thought to be due to elevation of her diuretics recently with metolazone been added onto her Lasix. Symptoms started just around the time that these changes were made. Potassium was successfully replaced. Hyponatremia also resolved with IV fluid administration. Patient was initially orthostatics positive and that resolved with IV fluid administration. Patient remained stable and on day of discharge, K was 3.4. Metolazone was discontinued permanently. 2D echocardiogram done on account of minimally elevated troponin showed EF of 65% with stage II diastolic dysfunction. PASP was 56 mmHg and she had mild aortic stenosis. Patient was discharged home on 08/05/2018 with a prescription for p.o. potassium. She is follow-up with her primary care doctor within 1 week. Patient is metolazone discontinued. Patient was seen and examined prior to discharge. She had no complaints and felt very well and wanted to go home. Review of systems otherwise negative. Labs and vitals reviewed. Home medication reviewed and reconciled. o/e: Vital Signs Height 5 ft 5 in Weight: 181 lb 14.102 oz Weight in Pounds 181.9 lbs Pulse Ox 98 Temperature 97.7 F Pulse Rate [Standing] 76 Pulse Rate [Sitting] 71 Pulse Rate [Lying] 67 Pulse Rate 68 Respiratory Rate 18 Blood Pressure [Standing] 134/54 Blood Pressure [Sitting] 137/64 Blood Pressure [Lying] 136/55 Blood Pressure [2nd BP] 106/58 Blood Pressure 122/57 Blood Pressure Position [2nd Semi-Fowlers BP] Blood Pressure Position Sitting General: Alert, Oriented x3, Cooperative HEENT: Atraumatic, PERRLA, EOMI, Normocephalic Neck: Supple, No JVD, Negative Carotid Bruits Lungs: Clear to auscultation, Normal air movement Cardiovascular: Regular rate, Regular Rhythm, Normal S1, Normal S2 Abdomen: Bowel Sounds Present, Soft, Non Tender, Non-Distended Extremities: No clubbing, No cyanosis, No edema, Capillary Refill Less than 3 Seconds Skin: No rashes, No breakdown Musculoskeletal: No Tenderness to Palpation of Joints or Extremities Neurological: Cranial nerves II-XII grossly intact, Neuro grossly intact Psych/Mental Status: Normal Affect, Appropriate Plan as above. Rest of management as per TESSA Wilson's note which I reviewed and endorsed. - Physical Exam Vital Signs Temp Pulse Resp BP Pulse Ox 97.7 F L 68 18 122/57 H 98 08/05/18 09:39 08/05/18 10:00 08/05/18 09:39 08/05/18 09:39 08/05/18 09:39 Oxygen Delivery Method Room Air Weight: 181 lb 14.102 oz Body Mass Index (BMI) 30.2 Orthostatic Vital Signs Start: 08/04/18 03:11 Freq: q24h Status: Active Protocol: Activity Type Activity Date Activity User E-Sign Co-Sign Detail Recorded Client Recorded Date Recorded By Document 08/05/18 05:37 [facility] [id number] 08/05/18 05:42 S 08/05/18 05:37 Orthostatic Vitals Standing -Blood Pressure (90/60-120/80) 134/54 H -Extremity Use Left Arm -Pulse Rate (60-100) 76 Sitting -Blood Pressure (90/60-120/80) 137/64 H -Extremity Use Left Arm -Pulse Rate (60-100) 71 Lying -Blood Pressure (90/60-120/80) 136/55 H -Extremity Use Left Arm -Pulse Rate (60-100) 67 Intake and Output for Last 24 Hours 08/03/18 08/04/18 08/05/18 23:59 23:59 23:59 Intake Total 735 / 735 3089 / 3089 336 / 336 Balance 735 / 735 3089 / 3089 336 / 336 Laboratory Tests Past 24 Hrs 08/05/18 08/05/18 06:18 06:18 Sodium 139 Potassium 3.4 L Chloride 96 L Carbon Dioxide 36.0 H Anion Gap 7 BUN 16 Creatinine 0.78 Estim Creat Clear Calc 41.72 Est GFR (MDRD) Af Amer 91 Est GFR (MDRD) Non-Af 75 BUN/Creatinine Ratio 20.4 H Glucose 116 H Calcium 8.8 Phosphorus 2.2 L Code Visit Inpatient E&M: [id number] Disch Hosp
--- NOTE | 2018-08-05 10:17 | DS.PCM_ITS ---
<Anne Rm - Last Filed: 08/05/18 11:03> Discharge Date and Diagnosis Date of Admission: 08/03/18 Date of Discharge: 08/05/18 - Primary Discharge Diagnosis Active and Suspected Problems 1. Severe hypokalemia, mild hypophosphatemia 2. Elevated troponin, ACS ruled out 3. Dizziness, suspected secondary to orthostatic hypotension as a result of diuretic regimen 4. Hypertension 5. Hyperlipidemia 6. History of aortic valve replacement 7. History of carotid endarterectomy - Secondary Discharge Diagnosis Chronic Problems Aortic stenosis (Chronic) Mitral valve prolapse (Chronic) Cerebrovascular disease (Chronic) Hypertension (Chronic) Hyperlipidemia (Chronic) Dyslipidemia (Chronic) Type 2 diabetes mellitus (Chronic) Hospital Course and Treatment Imaging Results: Diagnostic Data Brain CT 08/03/18 11:28 IMPRESSION: Chronic involutional changes of the brain. No acute hemorrhage Electronically Signed: Branden Moreau MD at 12:41 EDT , Service support , Chest X-Ray 08/03/18 11:28 IMPRESSION: No acute pulmonary process Electronically Signed: Branden Moreau MD at 12:45 EDT , Service support , Operations: None Procedures: 2-D Echocardiogram Summary of Care Provided: The patient is a 78 year old F admitted 08/03/2018 due to dizziness. 1. Severe hypokalemia, mild hypophosphatemia- secondary to recent increase in diuretic regimen. She reports Bumex was added to Lasix. Potassium and phosphorus replaced per protocol. Recommend to repeat BMP, phosphorus within 1 week by primary care provider. Potassium supplementation increased at discharge. Discontinue Bumex going forward. Follow-up with primary care provider in 1 week. 2. Elevated troponin-troponin did not trend. EKG without ST-T changes. Patient denies chest pain, chest pressure or shortness of breath. Echocardiogram shows an EF of 65%, stage II diastolic dysfunction, moderate mitral valve insufficiency, bioprosthetic aortic valve. No noted wall motion abnormality. Follow-up with primary advertising agency manager in 1 to 2 weeks. 3. Dizziness, suspected secondary to orthostatic hypotension as a result of diuretic regimen-diuretic regimen held during admission. Repeat orthostatic vitals negative. Dizziness resolved. 4. Hypertension-stable, continue home metoprolol regimen. 5. Hyperlipidemia-continue Zetia regimen. 6. History of aortic valve replacement 7. History of carotid endarterectomy-continue aspirin, Plavix, Zetia regimen. General: Alert, Oriented x3, Cooperative HEENT: Atraumatic, PERRLA, EOMI, Normocephalic Neck: Supple, No JVD, Negative Carotid Bruits Lungs: Clear to auscultation, Normal air movement Cardiovascular: Regular rate, Regular Rhythm, Normal S1, Normal S2 Abdomen: Bowel Sounds Present, Soft, Non Tender, Non-Distended Extremities: No clubbing, No cyanosis, No edema, Capillary Refill Less than 3 Seconds Skin: No rashes, No breakdown Musculoskeletal: No Tenderness to Palpation of Joints or Extremities Neurological: Cranial nerves II-XII grossly intact, Neuro grossly intact Psych/Mental Status: Normal Affect, Appropriate Patient seen and examined prior to discharge. Physical assessment as noted above. Patient is stable for discharge with follow up recommendations as noted above. This patient was seen by TESSA Wilson under the supervision of Dr. Sheridan. - Physical Exam Vital Signs Temp Pulse Resp BP Pulse Ox 97.7 F L 67 18 122/57 H 98 08/05/18 09:39 08/05/18 09:39 08/05/18 09:39 08/05/18 09:39 08/05/18 09:39 Oxygen Delivery Method Room Air Weight: 181 lb 14.102 oz Body Mass Index (BMI) 30.2 Orthostatic Vital Signs Start: 08/04/18 03:11 Freq: q24h Status: Active Protocol: Activity Type Activity Date Activity User E-Sign Co-Sign Detail Recorded Client Recorded Date Recorded By Document 08/05/18 05:37 [facility] [id number] 08/05/18 05:42 [facility] 08/05/18 05:37 Orthostatic Vitals Standing -Blood Pressure (90/60-120/80) 134/54 H -Extremity Use Left Arm -Pulse Rate (60-100) 76 Sitting -Blood Pressure (90/60-120/80) 137/64 H -Extremity Use Left Arm -Pulse Rate (60-100) 71 Lying -Blood Pressure (90/60-120/80) 136/55 H -Extremity Use Left Arm -Pulse Rate (60-100) 67 Intake and Output for Last 24 Hours 08/03/18 08/04/18 08/05/18 23:59 23:59 23:59 Intake Total 735 / 735 3089 / 3089 336 / 336 Balance 735 / 735 3089 / 3089 336 / 336 Laboratory Tests Past 24 Hrs 08/05/18 08/05/18 06:18 06:18 Sodium 139 Potassium 3.4 L Chloride 96 L Carbon Dioxide 36.0 H Anion Gap 7 BUN 16 Creatinine 0.78 Estim Creat Clear Calc 41.72 Est GFR (MDRD) Af Amer 91 Est GFR (MDRD) Non-Af 75 BUN/Creatinine Ratio 20.4 H Glucose 116 H Calcium 8.8 Phosphorus Pending Discharge Diet: Low fat/ Low Cholesterol Discharge Activity: Return to Normal Activity, Use Walker Call your doctor if you observe: Shortness of breath, Dizziness, Fainting spells, Chest pain Home Medications: Medications to take at Discharge Aspirin [Aspirin, Baby] 81 mg PO DAILY@0800 01/31/14 Clopidogrel Bisulfate [Plavix] 75 mg PO DAILY 01/31/14 Flaxseed Oil/Glendo 3,6,9 [Sv Flaxseed Oil 1,300 mg Sftgl] 1,000 mg PO DAILY 01/31/14 Furosemide [Lasix] 20 mg PO BID 01/31/14 Metoprolol Tartrate [Lopressor (beta santa)] 12.5 mg PO DAILY 01/31/14 Nitroglycerin (INPATIENT USE) [Nitrostat] 0.4 mg SUBLINGUAL Q5M PRN 04/28/15 Ezetimibe 10 mg PO DAILY 08/03/18 Na Biphos/Potassium Phosphate [Neutra-Phos Packet] 1 packet PO TID #42 packet 08/05/18 Potassium Chloride [K-Dur] 40 meq PO DAILY #60 tablet 08/05/18 Following Prescrptions Were Given to Patient: Potassium Chloride [K-Dur] 40 meq PO DAILY #60 tablet Na Biphos/Potassium Phosphate [Neutra-Phos Packet] 1 packet PO TID #42 packet Primary Care Physician: Gretta Davila MD [Primary Care Provider] - Please follow up with your Primary Care Physician in: 1 Week Please Follow Up With: Primary Woolen Tester When: 1-2 Weeks Disposition: Home Minutes spent on discharge:: 35 Patient Condition:: Stable Medical Necessity - Tobacco Use Smoking Status: Never smoker Meaningful Use Info Meaningful Use Diagnoses (Choose all that apply): None applicable <Sandy Sheridan - Last Filed: 08/05/18 12:47> Discharge Date and Diagnosis - Secondary Discharge Diagnosis Chronic Problems Aortic stenosis (Chronic) Mitral valve prolapse (Chronic) Cerebrovascular disease (Chronic) Hypertension (Chronic) Hyperlipidemia (Chronic) Dyslipidemia (Chronic) Type 2 diabetes mellitus (Chronic) Hospital Course and Treatment Summary of Care Provided: Patient seen by Anne ZAARTE under my supervision Patient was admitted with complaint of dizziness and weakness. She was found to have positive orthostatics. She was also noted to be profoundly hypokalemic and this was thought to be due to elevation of her diuretics recently with meto lazone been added onto her Lasix. Symptoms started just around the time that these changes were made. Potassium was successfully replaced. Hyponatremia also resolved with IV fluid administration. Patient was initially orthostatics positive and that resolved with IV fluid administration. Patient remained stable and on day of discharge, K was 3.4. Metolazone was discontinued permanently. 2D echocardiogram done on account of minimally elevated troponin showed EF of 65% with stage II diastolic dysfunction. PASP was 56 mmHg and she had mild aortic stenosis. Patient was discharged home on 08/05/2018 with a prescription for p.o. potassium. She is follow-up with her primary care doctor within 1 week. Patient is metolazone discontinued. Patient was seen and examined prior to discharge. She had no complaints and felt very well and wanted to go home. Review of systems otherwise negative. Labs and vitals reviewed. Home medication reviewed and reconciled. o/e: Vital Signs Height 5 ft 5 in Weight: 181 lb 14.102 oz Weight in Pounds 181.9 lbs Pulse Ox 98 Temperature 97.7 F Pulse Rate [Standing] 76 Pulse Rate [Sitting] 71 Pulse Rate [Lying] 67 Pulse Rate 68 Respiratory Rate 18 Blood Pressure [Standing] 134/54 Blood Pressure [Sitting] 137/64 Blood Pressure [Lying] 136/55 Blood Pressure [2nd BP] 106/58 Blood Pressure 122/57 Blood Pressure Position [2nd Semi-Fowlers BP] Blood Pressure Position Sitting General: Alert, Oriented x3, Cooperative HEENT: Atraumatic, PERRLA, EOMI, Normocephalic Neck: Supple, No JVD, Negative Carotid Bruits Lungs: Clear to auscultation, Normal air movement Cardiovascular: Regular rate, Regular Rhythm, Normal S1, Normal S2 Abdomen: Bowel Sounds Present, Soft, Non Tender, Non-Distended Extremities: No clubbing, No cyanosis, No edema, Capillary Refill Less than 3 Seconds Skin: No rashes, No breakdown Musculoskeletal: No Tenderness to Palpation of Joints or Extremities Neurological: Cranial nerves II-XII grossly intact, Neuro grossly intact Psych/Mental Status: Normal Affect, Appropriate Plan as above. Rest of management as per TESSA Wilson's note which I reviewed and endorsed. - Physical Exam Vital Signs Temp Pulse Resp BP Pulse Ox 97.7 F L 68 18 122/57 H 98 08/05/18 09:39 08/05/18 10:00 08/05/18 09:39 08/05/18 09:39 08/05/18 09:39 Oxygen Delivery Method Room Air Weight: 181 lb 14.102 oz Body Mass Index (BMI) 30.2 Orthostatic Vital Signs Start: 08/04/18 03:11 Freq: q24h Status: Active Protocol: Activity Type Activity Date Activity User E-Sign Co-Sign Detail Recorded Client Recorded Date Recorded By Document 08/05/18 05:37 [facility] [id number] 08/05/18 05:42 S 08/05/18 05:37 Orthostatic Vitals Standing -Blood Pressure (90/60-120/80) 134/54 H -Extremity Use Left Arm -Pulse Rate (60-100) 76 Sitting -Blood Pressure (90/60-120/80) 137/64 H -Extremity Use Left Arm -Pulse Rate (60-100) 71 Lying -Blood Pressure (90/60-120/80) 136/55 H -Extremity Use Left Arm -Pulse Rate (60-100) 67 Intake and Output for Last 24 Hours 08/03/18 08/04/18 08/05/18 23:59 23:59 23:59 Intake Total 735 / 735 3089 / 3089 336 / 336 Balance 735 / 735 3089 / 3089 336 / 336 Laboratory Tests Past 24 Hrs 08/05/18 08/05/18 06:18 06:18 Sodium 139 Potassium 3.4 L Chloride 96 L Carbon Dioxide 36.0 H Anion Gap 7 BUN 16 Creatinine 0.78 Estim Creat Clear Calc 41.72 Est GFR (MDRD) Af Amer 91 Est GFR (MDRD) Non-Af 75 BUN/Creatinine Ratio 20.4 H Glucose 116 H Calcium 8.8 Phosphorus 2.2 L Code Visit Inpatient E&M: 61083 Disch Hosp
[2018-08-05 10:53] LABS: Phosphorus 2.2 mg/dL (2.5-4.9)
== END 2018-08-05 10:11 | disposition home or self-care (01) ==
LOC: ED 14:27 → PCU 15:14
PROVIDERS: Family Medicine; Nurse Practitioner Family; Admitting Provider Family Medicine; Emergency Provider Emergency Medicine; Family Provider Internal Medicine; PCP Internal Medicine; Visit Provider Student in an Organized Health Care Education/Training Program
DX: E87.6 Hypokalemia (principal); R42 Dizziness and giddiness; I10 Essential (primary) hypertension; E78.5 Hyperlipidemia, unspecified; E11.9 Type 2 diabetes mellitus without complications; E83.39 Other disorders of phosphorus metabolism; Z95.2 Presence of prosthetic heart valve; Z79.82 Long term (current) use of aspirin; Z79.899 Other long term (current) drug therapy; Z95.0 Presence of cardiac pacemaker
CPT/HCPCS: 36415; 70450; 71046; 80048; 81001; 83735; 84100; 84484; 85025; 93005; 93306; 96360; 96361; 96372; 97162; 97165; 97530; 97802; 99218; 99285; J7030; Q9957; A4216; G0378

== ENCOUNTER 2018-11-23 11:51 | Emergency (ER) | payer MEDICARE, SELFPAY ==
[2018-11-23 11:51] VITALS: BMI 29.7
[2018-11-23 11:52] VITALS: BP 161/84; PULSE 73; RESP 18; TEMP 36.6; O2SAT 96; BMI 29.9
--- NOTE | 2018-11-23 13:20 | RAD_ITS ---
STUDY: X-RAY CHEST REASON FOR EXAM: Female, 78 years old. Chest pain and discomfort. TECHNIQUE: Single AP portable view of the chest. COMPARISON: Comparison is made with prior study dated August 03, 2018. FINDINGS: EKG electrodes are seen. Stable elevation of the right hemidiaphragm. Blunting of the left costophrenic angle. Normal size heart. A left-sided dual-chamber pacemaker is seen. A prosthetic mitral valve is present. There is calcification of the mitral valve annulus. Normal mediastinum and astrid. Normal visualized pulmonary arteries. There is atherosclerotic calcification of the aortic arch with tortuosity. There are diffuse degenerative changes of the visualized thoracic spine. Normal visualized ribs, clavicles, and shoulders. There is no demonstrated abnormality of the visualized soft tissue structures of the upper abdomen. RAD/Chest 1 View (Portable) IMPRESSION: No acute abnormality is seen. Electronically Signed: Ricki Crespo, at 14:03 EDT , Service support ,
--- NOTE | 2018-11-23 13:20 | EKG12_ITS ---
Test Reason : CP Blood Pressure : / mmHG Vent. Rate : 069 BPM Atrial Rate : 069 BPM P-R Int : 220 ms QRS Dur : 122 ms QT Int : 434 ms P-R-T Axes : 061 -06 060 degrees QTc Int : 465 ms Atrial-paced rhythm with prolonged AV conduction Septal infarct , age undetermined Abnormal ECG Confirmed by CAM MONTERO, TODD ([id number]), editor managing newspaper MARIE BAIRD ([id number]) on 11/27/2018 3:34:16 PM Referred By: STEFANI Confirmed By:TODD LEVY MD
[2018-11-23] MEDS: Aspirin 81 MG TAB.CHEW 324 MG PO (13:22)
[2018-11-23 13:43] LABS: Absolute Lymphocyte Count 1.58 X10^3/uL (0.83-4.51); Absolute Neutrophil Count 4.8 X10^3/uL (2.0-7.7); Basophil# 0.06 X10^3/uL; Basophil% 0.8 % (0-1); Eosinophil# 0.21 X10^3/uL; Eosinophils% 2.8 % (0-5); Hemoglobin 12.4 g/dL (12.0-15.0); Lymphocyte # 1.58 X10^3/ul (4.0); Lymphocyte % 21.3 % (19-41); Mean Corp Hgb Conc 32.6 g/dL (32-36); Mean Corpuscular Hgb 30.4 pg (27.0-32.0); Mean Corpuscular Volume 93.1 fL (81-99); Mean Platelet Vol. 9.5 fl (6.2-12.0); Monocyte# 0.73 X10^3/uL; Monocyte% 9.8 % (0-10); NRBC Flagged by Analyzer 0 % (0-5); Neutrophil # 4.82 X10^3/uL (2.7-7.7); Platelet Count 200 K/mm3 (150-450); RBC Distribution Width CV 13.6 % (11.6-14.6); RBC Distribution Width SD 45.7 fl (35.1-43.9); Red Blood Count 4.08 M/mm3 (4.2-5.4); White Blood Count 7.4 K/mm3 (4.4-11.0)
[2018-11-23 13:59] VITALS: BP 136/74; PULSE 63; RESP 18; O2SAT 96
[2018-11-23 14:04] LABS: Anion Gap 2 (5-15); BUN 16 mg/dL (7-18); BUN/Creat Ratio 17.3 RATIO (10-20); Calcium,Total 9.1 mg/dL (8.5-10.1); Chloride 101 mmol/L (98-107); Creatinine, Serum 0.92 mg/dL (0.55-1.02); EST Glomerular Filtration Rate 62 mL/min (>60); Est Glom Filt Rate - Afr Amer 76 mL/min (>60); Estimated Creatinine Clearance 45.35 ml/min; Glucose 104 mg/dL (74-106); Potassium 3.8 mmol/L (3.5-5.1); Sodium Level 137 mmol/L (136-145)
--- NOTE | 2018-11-23 15:02 | ED.VISSUMM ---
- ER Visit Summary Date of Service: 11/23/18 Chief Complaint: Pain History of Present Illness: The patient is a 78 F with chest pain. The patient had pain yesterday during a fire drill. It resolved spontaneously. Today she just feels tired. She has a history of coronary disease and was advised by her doctor to come to the ED. No other symptoms currently. No shortness of breath or respiratory symptoms. No nausea, vomiting, or sweats. Physical Examination: Afebrile and vital signs unremarkable. Alert and oriented. No acute distress. Heart regular. Lungs clear. Extremities nontender with no edema. Skin normal without diaphoresis or pallor. Cranial nerves: Grossly intact. Moves all extremities. Test Results: EKG showed paced rhythm at a rate of 69. CBC, BMP, troponin normal. Chest x-ray normal. Emergency Department Course and Treatment: Patient placed on a monitor. Treated with aspirin. EKG, labs, chest x-ray were all fairly unremarkable. Based on her history of coronary disease, I advised admission. The patient says that she does not want to be admitted. She understands that the work-up in the emergency department is not enough to rule out angina or other forms of ACS. I do not believe she has a dissection, PE, or other acute chest pathology based on her symptoms, work-up, and exam findings. Patient is requesting discharge. I advised her to return right away if she has any pain or new or worsening symptoms. Treatment Plan: As above Disposition: Discharged Impression: 1. Chest pain This note was generated with [employer] dictation software. It may contain incorrect words, spelling, and punctuation that were not noted in review of the chart prior to signing ED Disposition - Plan for ED Patient: Referrals: Gretta Davila MD [Primary Care Provider] -
--- NOTE | 2018-11-23 15:06 | ED.DEP ---
ED Disposition - Plan for ED Patient: Instructions: CHEST PAIN, Uncertain Cause Referrals: Gretta Davila MD [Primary Care Provider] -
[2018-11-23 15:46] VITALS: BP 114/57; PULSE 65; RESP 18; O2SAT 98
== END 2018-11-23 15:46 | disposition home or self-care (01) ==
PROVIDERS: Emergency Provider Emergency Medicine; Family Provider Internal Medicine; PCP Internal Medicine
DX: R07.9 Chest pain, unspecified (principal); I25.10 Atherosclerotic heart disease of native coronary artery without angina pectoris; Z95.0 Presence of cardiac pacemaker; Z95.5 Presence of coronary angioplasty implant and graft; Z79.02 Long term (current) use of antithrombotics/antiplatelets; Z79.82 Long term (current) use of aspirin; Z79.899 Other long term (current) drug therapy
CPT/HCPCS: 71045; 80048; 84484; 85025; 93005; 99285; A4216

== ENCOUNTER 2021-10-08 14:00 | Emergency (ER) | payer MEDICARE, SELFPAY ==
[2021-10-08] VITALS (14 sets, daily range): BP systolic 75–139; BP diastolic 31–102; PULSE 70–96; RESP 14–25; TEMP 36.7; O2SAT 92–100; BMI 35.5
--- NOTE | 2021-10-08 14:01 | CT_ITS ---
We are attempting to reach an attending provider to discuss findings. An addendum with communication details will be sent when the communication is complete. EXAM: CT HEAD WITHOUT INTRAVENOUS CONTRAST CLINICAL INDICATION: Neuro deficit, acute, stroke suspected TECHNIQUE: Multiple axial images were obtained of the head without intravenous contrast. This CT exam was performed using one or more of the following dose reduction techniques: automated exposure control, adjustment of the mA and/or kV according to patient size, and/or use of iterative reconstruction technique. This report was created using [employer] report [employer] technology. RADIATION DOSE: CTDIvol = 44.90 to mGy, DLP = 973.55 mGy-cm COMPARISON: CT head without contrast 08/03/2018. FINDINGS: BRAIN AND EXTRA-AXIAL SPACES: Unremarkable. No intra- or extra-axial hemorrhage. No evidence of acute infarct. No intracranial mass or mass effect. There is preservation of the bernard/white matter interface. Posterior fossa structures are unremarkable. Ventricles are appropriate for age. No hydrocephalus. Basal cisterns are patent. BONES/JOINTS: Unremarkable. No discrete lytic or blastic abnormalities. VASCULATURE: Tubular calcifications in the cavernous segments of both internal carotid arteries are unchanged. SINUSES: Unremarkable as visualized. Clear. MASTOID AIR CELLS: Unremarkable. Clear. ORBITS: Visualized globes, extraocular muscles, optic nerves and retrobulbar fat appear unremarkable. CT/STROKE Brain/Head without Cont IMPRESSION: 1. No CT evidence of intracranial bleeding, acute ischemic infarct or acute intracranial abnormality. 2. Total ASPECTS score: 10/10. 3. No interval change when compared to 08/03/2018. Electronically Signed: Kevin Romero MD at 14:19 EDT ,
--- NOTE | 2021-10-08 14:01 | EKG12_ITS ---
Test Reason : stroke Blood Pressure : / mmHG Vent. Rate : 090 BPM Atrial Rate : 090 BPM P-R Int : 238 ms QRS Dur : 126 ms QT Int : 358 ms P-R-T Axes : 082 037 100 degrees QTc Int : 437 ms Sinus rhythm with 1st degree A-V block with Premature atrial complexes Non-specific intra-ventricular conduction block Cannot rule out Septal infarct , age undetermined Abnormal ECG Confirmed by ALINE MONTERO, KENN ([id number]), makeup editor CHRISSY SAN ([id number]) on 10/09/2021 1:46:58 PM Referred By: Curtis Confirmed By:KENN MIRELES MD
--- NOTE | 2021-10-08 14:02 | EDS_ITS ---
HPI History of Present Illness Chief Complaint: Neuro S/Sx Detail of Chief Complaint: Patient was able to walk at 830. She was talking normally at 10 AM. Informant: EMS (Primary informant EMS since patient is having difficulty speaking) Onset/Context/Timing Onset: Today (Presumed last known well 1000.) Context: Sudden Onset Timing: Continuous Quality and Location: Positive for Left Leg Weakness, Expressive Aphasia and Difficulty with Ambulation Onset: Last spoken to and acting appropriately at 10 AM Current Severity: Moderate Maximum Severity: Moderate Worsened by: Nothing specific Relieved by: Nothing Associated Symptoms Associated Symptoms: Positive for Headache Narrative Narrative: Patient is an 81-year-old woman with history of hypertension, hyperlipidemia, type 2 diabetes on aspirin. History is limited because of decreased level of consciousness. Patient does obey simple commands. She does know her age. She does not know the month. Squad states she initially had no grasp. She is not moving her left leg. History is very limited. Prior similar symptoms: No Recent Illness/Hospitalization: [facility] Medical History (Updated 10/08/21 @ 15:[address] Jarrett Acevedo MD) Diabetes Hypertension Medical History no medical history no medical history (Documented in the HPI narrative) Home Medications aspirin 81 mg chewable tablet 81 mg PO DAILY@0800 01/31/14 [History Last Taken 10/07/21] nitroglycerin 0.4 mg sublingual tablet 0.4 mg sublingual Q5M PRN Chest Pain 04/28/15 [History Last Taken Unknown] ezetimibe 10 mg tablet 10 mg PO DAILY 08/03/18 [History Last Taken 10/07/21] metoprolol succinate 25 mg tablet,extended release 24 hr 25 mg PO DAILY HEART 11/23/18 [History Last Taken 10/07/21] furosemide 40 mg tablet 40 mg PO BID FLUID 10/08/21 [History Last Taken 10/07/21] levothyroxine 50 mcg tablet 50 mcg PO DAILY THYROID 10/08/21 [History Last Taken 10/07/21] warfarin 5 mg tablet 2.5 mg PO DAILY BLOOD THINNER 10/08/21 [History Last Taken 10/07/21] Allergy/AdvReac Type Severity Reaction Status Date / Time glyburide Allergy Itching Verified 10/08/21 14:27 Sulfa (Sulfonamide Allergy Hives Verified 10/08/21 14:27 Antibiotics) Social History (Updated 10/08/21 @ 14:[address] Jarrett Acevedo MD) household members: none Smoking Status: Never smoker details: Unknown substance use type: unknown ROS ROS ED Review of Systems ROS Unobtainable: due to mental status and other Details: Patient is moaning. She will open eyes after repeatedly asked to. She does obey simple commands. EXAM Physical Exam Const Vital Signs: 10/08/21 14:01 10/08/21 14:27 10/08/21 14:43 Temperature 98.1 F 98.1 F Temperature Source Temporal Temporal Pulse Rate 92 91 Respiratory Rate 25 H 24 H Respiratory Effort Respiratory Depth Blood Pressure 139/82 H 139/82 H Blood Pressure Mean 101 101 Pulse Ox 94 94 Oxygen Delivery Method Room Air Room Air Room Air 10/08/21 14:44 10/08/21 14:57 10/08/21 15:08 Temperature Temperature Source Pulse Rate Respiratory Rate Respiratory Effort Short of Breath Labored Respiratory Depth Shallow Blood Pressure 75/34 L 75/34 L Blood Pressure Mean 47 47 Pulse Ox Oxygen Delivery Method 10/08/21 15:08 10/08/21 15:39 10/08/21 16:00 Temperature Temperature Source Pulse Rate 96 90 Respiratory Rate 19 H 18 Respiratory Effort Respiratory Depth Blood Pressure 83/72 L 85/76 L 117/102 H Blood Pressure Mean 75 79 107 Pulse Ox 93 92 Oxygen Delivery Method Room Air 10/08/21 16:33 10/08/21 16:46 10/08/21 16:53 Temperature Temperature Source Pulse Rate Respiratory Rate Respiratory Effort Respiratory Depth Blood Pressure 110/75 110/55 L 111/55 L Blood Pressure Mean 86 73 73 Pulse Ox Oxygen Delivery Method 10/08/21 17:00 10/08/21 18:00 Temperature Temperature Source Pulse Rate 70 73 Respiratory Rate 14 18 Respiratory Effort Respiratory Depth Blood Pressure 104/78 97/60 Blood Pressure Mean 86 72 Pulse Ox 93 100 Oxygen Delivery Method Room Air Room Air Positive well nourished and well developed Constitutional Narrative: Patient appears pale. She has a depressed level of consciousness. General Appearance ED: well developed; Negative for NAD HEENT Reports dry mucous membranes atraumatic Mouth ED: Yes dry mucous membranes Mouth: dry mucous membranes Eyes PERRL and EOMs intact bilaterally Eyes Narrative: There is no nystagmus. General Eye ED: Yes pale conjunctiva; Negative for scleral icterus Neck no lymphadenopathy, supple and no JVD Neck Narrative: There is no carotid bruit. Resp normal respiratory effort and clear to auscultation bilaterally Resp Narrative: Breath sounds are symmetric. Breath sounds are diminished due to poor inspiratory volume. Cardio Cardio Narrative: Question of a systolic murmur heard best over the aortic listening area. Certain since patient does moan occasionally. Rate: regular rate Rhythm: regular rhythm Heart Sounds: S1 normal and S2 normal GI normal to inspection, nondistended, normoactive bowel sounds and no masses Back/Spine no CVA tenderness Neuro No oriented x3 and CN's II-XII intact bilaterally [place] Coma Scale: document GCS findings To Voice Obeys Commands Confused 13 Sensorium / Orientation: oriented to time and orientation impaired; Negative for alert Psych Psych Narrative: Difficult to assess Skin General Skin Exam: Negative for jaundice Rashes: no rashes STROKE Vital Signs/Narrative: Vital Signs Pulse Resp BP Pulse Ox O2 Del Method 10/08/21 18:00 73 18 97/60 100 Room Air 10/08/21 17:00 70 14 104/78 93 Room Air 10/08/21 16:53 111/55 L 10/08/21 16:46 110/55 L 10/08/21 16:33 110/75 10/08/21 16:00 90 18 117/102 H 92 Room Air 10/08/21 15:39 85/76 L 10/08/21 15:08 96 19 H 83/72 L 93 10/08/21 15:08 75/34 L 10/08/21 14:57 75/34 L 10/08/21 14:43 Room Air Inital Vital Signs reviewed: Yes NIHSS Initial: 1a Level of Consciousness: 1 1b LOC Questions (Score 2 if aphasic/stupor): 1 1c LOC Commands (Only score 1st attempt): 0 2 Best Gaze (If aphasic, use reflexive mvmts.): 0 4 Facial Palsy: 0 5 Motor Arm Right (UN = amputation/fusion): 1 5 Motor Arm Left: 1 6 Motor Leg Right: 0 6 Motor Leg Left: 2 7 Limb ataxia (Only + if out of proportion): UN (Patient not able to cooperate.) 9 Best Language: 1 10 Dysarthria (mute, coma=2, intubated=UN): UN Total Score: 7 MDM MDM MDM Narrative Medical decision making narrative: Rapid assessment and triage bay raises concern for stroke. This may also represent infectious or metabolic cause. Stroke order set was initiated. Especially based on what I was told by the paramedics. Also because she is complaining of headache concerned this may represent intracranial bleed. Daughter states she was discharged from [facility] yesterday. She was transfused blood because of anemia. Stool is positive for blood. She also had a low platelet count. Apparently the platelets infused into her right forearm. She does have swelling of the right forearm with discoloration. I believe she has a palpable pulse. There is biphasic possibly triphasic flow with Doppler. There is no concern at this point for compartment syndrome. She has significant edema but not hard firm or tender. If daughters were informed of patient's condition. Broach subject regarding hospice. After speaking with them hospice was contacted. The hospice nurse is evaluating patient. Most likely will be excepted. Lab Data Attestation: I reviewed the patient's lab results. Lab results narrative: Patient has a hemoglobin 9.2. Platelet count is 47,000. Differential reveals lymphocytosis. Coags reveal elevated INR at 2.1. Apparently she is not on an anticoagulant. I was informed by nursing staff that she has a low blood pressure. We will treat with IV fluids and discussed with family regarding hospice. Labs: Laboratory Results - last 24 hr 10/08/21 10/08/21 10/08/21 14:30 14:30 14:30 WBC 4.2 L RBC 2.83 L Hgb 9.2 L Hct 29.7 L MCV 104.9 H MCH 32.5 H MCHC 31.0 L RDW Std Deviation 81.0 H RDW Coeff of [place] 21.6 H Plt Count 47 L* MPV 10.8 Immature Gran % (Auto) 0.700 Neut % (Auto) 36.3 L Lymph % (Auto) 49.9 H [place] % (Auto) 9.3 Eos % (Auto) 3.3 Baso % (Auto) 0.5 Absolute Neuts (auto) 1.5 L Absolute Lymphs (auto) 2.09 Nucleated RBC % 2.6 Diff Path Review May foll Reactive Lymphocytes RARE Platelet Estimate MKD DEC Anisocytosis 1+ PT 23.0 H INR 2.1 APTT 27.3 Sodium 133 L Potassium 4.4 Chloride 99 Carbon Dioxide 28.0 Anion Gap 6 BUN 49 H Creatinine 2.01 H Estim Creat Clear Calc 18.96 Est GFR (MDRD) Af Amer 31 L Est GFR (MDRD) Non-Af 25 L BUN/Creatinine Ratio 24.4 H Glucose 77 Calcium 10.0 Troponin I High Sens 45 Radiography Diagnostic Testing: Clinical Impression(s) from Imaging Studies Brain CT 10/08/21 14:01 IMPRESSION: 1. No CT evidence of intracranial bleeding, acute ischemic infarct or acute intracranial abnormality. 2. Total ASPECTS score: 10/10. 3. No interval change when compared to 08/03/2018. Electronically Signed: Kevin Romero MD at 14:19 EDT , ADDENDUM: 10/08/21 1426 IMPRESSION: 1. No CT evidence of intracranial bleeding, acute ischemic infarct or acute intracranial abnormality. 2. Total ASPECTS score: 10/10. 3. No interval change when compared to 08/03/2018. N.B. : The above Results were Read Back by Kevin Romero MD to Jarrett Acevedo MD , , and understanding confirmed on 10/08/2021 14:19:14 (ET). Electronically Signed: Kevin Romero MD at 14:19 EDT , Chest X-Ray 10/08/21 14:49 IMPRESSION: 1. Right subpulmonic fluid with compressive atelectases of right lung base, new since 11/23/2018. 2. Dual-chamber pacing lead tips are in the right atrium and right ventricle. There are 2 leads in the right ventricle, previously 1. Electronically Signed: Kevin Romero MD at 15:57 EDT , I did receive call from radiologist informing that the CT of the head is unremarkable. Suspect patient's symptoms are due to metabolic causes not stroke. Furthermore, daughter informed me that when she was admitted to [facility] the initial thought was that she had a stroke and found to have anemia and thrombocytopenia. Chest x-ray reveals diminished inspiratory volume. There may be atelectasis on the right. There is a small effusion noted. Cardiac silhouette is unremarkable. Osseous structures appear unremarkable. This was independently reviewed and interpreted by me at 1510. Stroke Documentation Questions Stroke Team Activated: Yes Reviewed Inclusion/Exclusion criteria: Yes Was Patient considered for Endovascular Intervention?: No-CTA not indicated (CT head was canceled since patient is DNR comfort care only. Patient not tPA candidate.) IV Alteplase (t-PA) Administered: No (Patient not a candidate. She has Hemoccult positive blood and required tra) No contraindications for IV Alteplase (t-PA) administration.: No Alteplase (t-PA) risks, benefits, alternative discussed: No (Daughter that arrived informing that patient is DNR comfort care only.) Critical Care Time Critical Care Time: Yes Critical care time (excluding procedures): 30-74 minutes (31), Including time spent: (History, physical, review of records from outside facility, interpretation laboratory results, initiation of treatment for initially presumed stroke and then for presumed GI bleed.), Discussing w/Patient &/or Family/Skein Winder (First daughter to arrive on scene and now both daughters.), Discussing w/Consultants (Hospice) and Arranging Admission or Transfer Discharge Plan Triage Chief Complaint: Neuro S/Sx ED Provider: Jarrett Acevedo Dx/Rx/DC Orders Clinical Impression: Acute hypotension, Acute GI bleeding, Anemia due to acute blood loss, Acute alteration in mental status, Thrombocytopenia, Acute kidney injury Prescriptions: No Action aspirin 81 MG tablet,chewable 81 mg PO DAILY@0800 nitroglycerin 0.4 MG tablet 0.4 mg sublingual Q5M PRN (Reason: Chest Pain) ezetimibe 10 MG tablet 10 mg PO DAILY metoprolol succinate 25 MG tablet extended release 24 hr 25 mg PO DAILY furosemide 40 mg tablet 40 mg PO BID levothyroxine 50 mcg tablet 50 mcg PO DAILY warfarin 5 mg tablet 2.5 mg PO DAILY Primary Care Provider: Gretta Davila Referrals: Gretta Davila MD [Primary Care Provider] - Disposition Disposition: Hospice in Medical Facility
--- NOTE | 2021-10-08 14:25 | ED.RN ---
per Dr. Acevedo we can cancel [facility].
--- NOTE | 2021-10-08 14:31 | CHAPLAIN ---
Type of Pastoral Visit ___ Initial Visit ___ Follow-up Visit ___ On-call Visit ___ General Patient Visit ___ Spiritual Assessment ___ Family Conference ___ Bereavement _x__ Rapid Response ___ Code Blue ___ Other (describe below) Pastoral Care Referral From ___ Patient ___ Family ___ Nurse ___ Physician ___ Adjuster Arbitrator ___ Wedger And Gluer ___ Other (describe below) Sacrament/Intervention ___ Active listening ___ Anointing ___ Uatsdin ___ Bereavement ___ Communion ___ Yesenia exploration ___ ___ Life review ___ Prayer ___ Reconciliation ___ Sacrament of Sick _x__ Supportive presence ___ Wedding ___ Other (describe below) Pastoral Comments came to rapid response and arrived shortly before patient did by squad; pt did not have family members at this time; waited to see if help was needed
--- NOTE | 2021-10-08 14:38 | ED.RN ---
per wick cancel CTA head and neck.
--- NOTE | 2021-10-08 14:40 | ED.RN ---
bilat upper and lower pitting edema. lt forearm, wrist, hand significant discolorization. provider used doppler for pulse. pulse present.
--- NOTE | 2021-10-08 14:40 | NURSING ---
FAXED FACESHEET TO [facility]
[2021-10-08 14:45] LABS: Absolute Lymphocyte Count 2.09 X10^3/uL (0.83-4.51); Absolute Neutrophil Count 1.5 X10^3/uL (2.0-7.7); Basophil# 0.02 X10^3/uL; Basophil% 0.5 % (0-1); Eosinophil# 0.14 X10^3/uL; Eosinophils% 3.3 % (0-5); Hematocrit 29.7 % (37-47); Hemoglobin 9.2 g/dL (12.0-15.0); Lymphocyte # 2.09 X10^3/ul (0.83-4.51); Lymphocyte % 49.9 % (19-41); Mean Corpuscular Hgb 32.5 pg (27.0-32.0); Mean Corpuscular Volume 104.9 fL (81-99); Mean Platelet Vol. 10.8 fl (6.2-12.0); Monocyte# 0.39 X10^3/uL; Monocyte% 9.3 % (0-10); NRBC Flagged by Analyzer 2.6 % (0-5); Neutrophil # 1.52 X10^3/uL (2.7-7.7); Neutrophil % 36.3 % (47-70); POSITIVE COUNT YES; POSITIVE MORPHOLOGY YES; RBC Distribution Width CV 21.6 % (11.6-14.6); Red Blood Count 2.83 M/mm3 (4.2-5.4); White Blood Count 4.2 K/mm3 (4.4-11.0)
[2021-10-08 14:49] LABS: Differential Indicated SCAN CRITERIA MET; Platelet Count 47 K/mm3 (150-450)
--- NOTE | 2021-10-08 14:49 | RAD_ITS ---
EXAM: XR CHEST, 1 VIEW CLINICAL INDICATION: Neuro deficit, acute, stroke suspected TECHNIQUE: Frontal view of the chest. This report was created using [employer] report generation technology. COMPARISON: 11/23/2018. FINDINGS: LUNGS AND PLEURAL SPACES: Small right subpulmonic pleural fluid with compressive atelectases of right lung base. No suspicious infiltrates. No pneumothorax. HEART: Metallic stent across the aortic valve is unchanged. Calcification of the mitral annulus. Mild cardiomegaly. MEDIASTINUM: Central airways and mediastinal contour are unremarkable. BONES/JOINTS: Unremarkable. SOFT TISSUES: Unremarkable. TUBES, LINES AND DEVICES: Dual-chamber pacing lead tips in the right atrium and right ventricle. There are 2 pacing leads in the right ventricle, previously 1. RAD/Chest 1 View IMPRESSION: 1. Right subpulmonic fluid with compressive atelectases of right lung base, new since 11/23/2018. 2. Dual-chamber pacing lead tips are in the right atrium and right ventricle. There are 2 leads in the right ventricle, previously 1. Electronically Signed: Kevin Romero MD at 15:57 EDT ,
[2021-10-08 15:05] LABS: International Normalized Ratio 2.1
[2021-10-08 15:06] LABS: Partial Thromboplast Time 27.3 Seconds (24.1-36.2)
[2021-10-08 15:09] LABS: Anion Gap 6 (5-15); BUN 49 mg/dL (7-18); BUN/Creat Ratio 24.4 RATIO (10-20); Chloride 99 mmol/L (98-107); Creatinine, Serum 2.01 mg/dL (0.55-1.02); EST Glomerular Filtration Rate 25 mL/min (>60); Est Glom Filt Rate - Afr Amer 31 mL/min (>60); Estimated Creatinine Clearance 18.96 ml/min; Glucose 77 mg/dL (74-106); Potassium 4.4 mmol/L (3.5-5.1); Sodium Level 133 mmol/L (136-145); Troponin-I HS 45 pg/mL (3.0-54.0)
--- NOTE | 2021-10-08 15:09 | CM.ED ---
SW Note SW met with patient's family as initially patient was a stroke alert but per ANDREINA Kumar the stroke alert protocol was cancelled. SW met with both daughters and provided emotional support. No further needs identified at this time by family. SW remains available if needs arise. Roseline SOTELO
[2021-10-08 15:17] LABS: Anisocytosis 1+; Platelet Estimate MKD DEC (ADEQ); Reactive Lymphocyte RARE
--- NOTE | 2021-10-08 15:18 | NURSING ---
[facility], HOSPICE, FOR DR GLASS
--- NOTE | 2021-10-08 15:48 | ED.RN ---
IV infiltrated. Edema noted to klaudia upper extremities. Dr. Acevedo updated. No IV or fluids at this time.
--- NOTE | 2021-10-08 16:15 | CHAPLAIN ---
Type of Pastoral Visit ___ Initial Visit ___ Follow-up Visit ___ On-call Visit ___ General Patient Visit ___ Spiritual Assessment ___ Family Conference ___ Bereavement ___ Rapid Response ___ Code Blue ___ Other (describe below) Pastoral Care Referral From ___ Patient ___ Family ___ Nurse ___ Physician ___ Linotype Machinist Apprentice ___ Insurance Examiner ___ Other (describe below) Sacrament/Intervention ___ Active listening ___ Anointing ___ Rastafari ___ Bereavement ___ Communion ___ Yesenia exploration ___ ___ Life review ___ Prayer ___ Reconciliation ___ Sacrament of Sick ___ Supportive presence ___ Wedding ___ Other (describe below) Pastoral Comments came to ED for the stroke alert; pt was taken immediately to CT Scan; no family was present and family member had not arrived after several minutes went by; no interventions
--- NOTE | 2021-10-08 16:32 | ED.RN ---
Hospice nurse into room.
[2021-10-09 11:35] LABS: Pathologist Review Reviewed
== END 2021-10-08 20:34 | disposition hospice, inpatient (51) ==
PROVIDERS: Emergency Provider Emergency Medicine; PCP Internal Medicine; Visit Provider Emergency Medicine
DX: I95.9 Hypotension, unspecified (principal); N17.9 Acute kidney failure, unspecified; D69.6 Thrombocytopenia, unspecified; E11.9 Type 2 diabetes mellitus without complications; D62 Acute posthemorrhagic anemia; I10 Essential (primary) hypertension; R60.9 Edema, unspecified; K92.2 Gastrointestinal hemorrhage, unspecified; R47.9 Unspecified speech disturbances; R51.9 Headache, unspecified; E78.5 Hyperlipidemia, unspecified; R47.01 Aphasia; R26.2 Difficulty in walking, not elsewhere classified; R41.82 Altered mental status, unspecified; Z79.82 Long term (current) use of aspirin; Z79.01 Long term (current) use of anticoagulants; Z79.890 Hormone replacement therapy; Z79.899 Other long term (current) drug therapy
CPT/HCPCS: 70450; 71045; 80048; 84484; 85025; 85610; 85730; 93005; 99285; J7040; A4216